=== PATIENT | female | born 1990 | race Hispanic/Latino ===

== ENCOUNTER 2019-01-05 03:32 | Observation (INO) | payer BC, SELFPAY ==
[2019-01-05] MEDS ORDERED: NA CHLORIDE 0.9% 1,000 ML ONE ×2 (03:57→04:09)
[2019-01-05] MEDS ORDERED: ONDANSETRON 4 MG/2 ML VIAL ONE (04:05)
[2019-01-05] MEDS ORDERED: ADENOSINE 6 MG/ 2ML VIAL IV ONE ×2 (04:07→04:13)
[2019-01-05] MEDS ORDERED: METOPROLOL TARTRATE 5 MG/5 ML INJ IV ONE (04:34)
[2019-01-05 04:53] LABS: Protime INR 0.92
[2019-01-05 04:58] LABS: Absolute Lymphocytes (CBC) 3.4 K/uL (0.7-4.9); Absolute Monocytes 0.5 K/uL (0.1-1.3); Absolute Neutrophil 4.9 K/uL (1.8-8.0); Basophils % 1.1 % (0-1.3); Eosinophils % 2.3 % (0-4.4); Hematocrit 30.3 % (36.0-45.0); Lymphocytes % 37.5 % (15.3-44.8); MPV 8.2 fL (7.6-11.3); Monocytes % 5.7 % (3.3-12.3); RBC Red Blood Cell Count 4.04 M/uL (3.86-4.86)
--- NOTE | 2019-01-05 04:58 | EDPHYS ---
Physician Documentation [facility] Name: Campos Linares Age: 28 yrs Sex: Female : 1990 Arrival Date: 01/05/2019 Time: 03:33 Bed 4 Private MD: Jonatan Encarnacion V ED Physician Alejandro Deutsch HPI: 01/05 03:59 This 28 yrs old Female presents to ER via Wheelchair with complaints of Chest gertrudis Pain. 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 - Social history:: Smoking status: Patient/guardian denies using tobacco. - Ebola Screening: : Patient negative for fever greater than or equal to 101.5 degrees Fahrenheit, and additional compatible Ebola Virus Disease symptoms. - Family history:: not pertinent. ROS: 03:59 Eyes: Negative for injury, pain, redness, and discharge, ENT: Negative for injury, gertrudis pain, and discharge, Neck: Negative for injury, pain, and swelling, Respiratory: Negative for shortness of breath, cough, wheezing, and pleuritic chest pain, Abdomen/GI: Negative for abdominal pain, nausea, vomiting, diarrhea, and constipation, Back: Negative for injury and pain, : Negative for injury, bleeding, discharge, and swelling, MS/Extremity: Negative for injury and deformity, Neuro: Negative for headache, weakness, numbness, tingling, and seizure, Psych: Negative for depression, anxiety, suicide ideation, homicidal ideation, and hallucinations, Allergy/Immunology: Negative for hives, rash, and allergies, Endocrine: Negative for neck swelling, polydipsia, polyuria, polyphagia, and marked weight changes, Hematologic/Lymphatic: Negative for swollen nodes, abnormal bleeding, and unusual bruising. 03:59 Constitutional: Positive for malaise. 03:59 Cardiovascular: Positive for chest pain, palpitations. Exam: 03:59 Constitutional: This is a well developed, well nourished patient who is awake, alert, gertrudis and in no acute distress. Head/Face: Normocephalic, atraumatic. Eyes: Pupils equal round and reactive to light, extra-ocular motions intact. Lids and lashes normal. Conjunctiva and sclera are non-icteric and not injected. Cornea within normal limits. Periorbital areas with no swelling, redness, or edema. ENT: Nares patent. No nasal discharge, no septal abnormalities noted. Tympanic membranes are normal and external auditory canals are clear. Oropharynx with no redness, swelling, or masses, exudates, or evidence of obstruction, uvula midline. Mucous membranes moist. Neck: Trachea midline, no thyromegaly or masses palpated, and no cervical lymphadenopathy. Supple, full range of motion without nuchal rigidity, or vertebral point tenderness. No Meningismus. Chest/axilla: Normal chest wall appearance and motion. Nontender with no deformity. No lesions are appreciated. Respiratory: Lungs have equal breath sounds bilaterally, clear to auscultation and percussion. No rales, rhonchi or wheezes noted. No increased work of breathing, no retractions or nasal flaring. Abdomen/GI: Soft, non-tender, with normal bowel sounds. No distension or tympany. No guarding or rebound. No evidence of tenderness throughout. Back: No spinal tenderness. No costovertebral tenderness. Full range of motion. Female : Normal external genitalia. MS/ Extremity: Pulses equal, no cyanosis. Neurovascular intact. Full, normal range of motion. Neuro: Awake and alert, GCS 15, oriented to person, place, time, and situation. Cranial nerves II-XII grossly intact. Motor strength 5/5 in all extremities. Sensory grossly intact. Cerebellar exam normal. Normal gait. Psych: Awake, alert, with orientation to person, place and time. Behavior, mood, and affect are within normal limits. 03:59 Cardiovascular: Rate: tachycardic, Rhythm: regular, Pulses: Pulses are 3+ in bilateral radial, brachial, femoral, popliteal, posterior tibial and and dorsalis pedis arteries.. Heart sounds: normal, Edema: is not appreciated, JVD: is not appreciated. 03:59 Musculoskeletal/extremity: DVT Exam: No signs of deep vein thrombosis. no pain, no gertrudis swelling, no tenderness, negative Homans' sign noted on exam, no appreciated bluish discoloration, no erythema, no increased warmth. Vital Signs: 03:41 BP 70 / 28; Pulse 175; Resp 30 S; Pulse Ox 100% on R/A; Weight 73.94 kg (R); Height 5 jd3 ft. 4 in. (162.56 cm) (R); Pain 10/10; 04:00 BP 96 / 28; Pulse 187; Resp 25 S; Pulse Ox 100% on 2 lpm NC; jd3 04:05 BP 74 / 47; Pulse 183; Resp 15 S; Pulse Ox 100% on 2 lpm NC; jd3 04:09 BP 82 / 51; Pulse 173; Resp 15 S; Pulse Ox 100% on 2 lpm NC; jd3 04:13 BP 85 / 61; Pulse 169; Resp 22 S; Pulse Ox 100% on 2 lpm NC; jd3 04:18 BP 77 / 62; Pulse 166; Resp 19 S; Pulse Ox 100% on 2 lpm NC; jd3 04:20 BP 106 / 70; Pulse 98; Resp 22 S; Pulse Ox 97% on 2 lpm NC; jd3 04:23 BP 104 / 69; Pulse 77; Resp 18 S; Pulse Ox 100% on 2 lpm NC; jd3 04:28 BP 101 / 69; Pulse 85; Resp 15 S; Pulse Ox 100% on 2 lpm NC; jd3 04:48 BP 104 / 73; Pulse 91; Resp 17; Pulse Ox 100% on 2 lpm NC; Pain 0/10; tl1 05:07 BP 103 / 67; Pulse 93; Resp 17; Pulse Ox 100% on R/A; Pain 0/10; tl1 06:27 BP 116 / 88; Pulse 85; Resp 20; Pulse Ox 100% on R/A; Pain 0/10; tl1 06:29 Temp 98(O); tl1 07:04 BP 112 / 80; Pulse 85; Resp 18; Pulse Ox 100% on R/A; hj 03:41 Body Mass Index 27.98 (73.94 kg, 162.56 cm) j MDM: 03:43 Patient medically screened. [facility] 04:03 Data reviewed: vital signs, nurses notes, lab test result(s), EKG, radiologic studies, [facility] CT scan, plain films. 01/05 03:59 Order name: Basic Metabolic Panel [facility] 01/05 03:59 Order name: CBC with Diff; Complete Time: 06:11 gertrudis 01/05 03:59 Order name: LFT's; Complete Time: 05:26 gertrudis 01/05 03:59 Order name: Magnesium; Complete Time: 05:26 gertrudis 01/05 03:59 Order name: NT PRO-BNP [facility] 01/05 03:59 Order name: PT-INR; Complete Time: 05:26 gertrudis 01/05 03:59 Order name: Troponin (emerg Dept Use Only); Complete Time: 05:26 gertrudis 01/05 03:59 Order name: TSH; Complete Time: 05:26 gertrudis 01/05 03:59 Order name: Basic Metabolic Panel; Complete Time: 05:26 EDMS 01/05 03:59 Order name: NT PRO-BNP; Complete Time: 05:26 EDMS 01/05 05:05 Order name: CBC Smear Scan; Complete Time: 06:11 EDMS 01/05 05:08 Order name: Lipid Profile [facility] 01/05 05:08 Order name: Lipid Profile ED[facility] 01/05 05:08 Order name: Troponin I [facility] 01/05 03:59 Order name: XRAY Chest (1 view) [facility] 01/05 03:59 Order name: EKG; Complete Time: 04:00 gertrudis 01/05 03:59 Order name: Cardiac monitoring; Complete Time: 04:32 gertrudis 01/05 03:59 Order name: CT Chest For PE Angio [facility] 01/05 05:08 Order name: Heart Healthy [facility] 01/05 05:08 Order name: EKG Electrocardiogram [facility] 01/05 05:08 Order name: EKG Electrocardiogram ED[facility] 01/05 05:08 Order name: Troponin I ED[facility] 01/05 05:08 Order name: Troponin I [facility] 01/05 03:59 Order name: EKG - Nurse/Tech; Complete Time: 04:32 gertrudis 01/05 03:59 Order name: IV Saline Lock; Complete Time: 04:32 gertrudis 01/05 03:59 Order name: Labs collected and sent; Complete Time: 04:32 gertrudis 01/05 03:59 Order name: O2 Per Protocol; Complete Time: 04:32 gertrudis 01/05 03:59 Order name: O2 Sat Monitoring; Complete Time: 04:32 gertrudis Administered Medications: 03:54 Drug: NS 0.9% 1000 ml {Note: given by Ksenia BURROWS.} Route: IV; Rate: 1 bolus; Site: jd3 right hand; 05:07 Follow up: IV Status: Completed infusion tl1 03:54 Drug: Zofran 4 mg {Note: given by Ksenia BURROWS.} Route: IVP; Site: right hand; jd3 04:45 Follow up: Response: No adverse reaction; Marked relief of symptoms; Nausea is decreasedtl1 04:12 Drug: NS 0.9% 1000 ml Route: IV; Rate: 1 bolus; Site: left antecubital; jd3 05:06 Follow up: IV Status: Completed infusion tl1 04:19 Drug: Adenosine 6 mg {Note: given by Sahara VALDOVINOS} Route: IVP; Site: left antecubital; jd3 04:47 Follow up: Response: No adverse reaction; Marked relief of symptoms; Cardiac rhythm tl1 changed 04:24 Drug: Lopressor 2.5 mg Route: IVP; Site: right hand; jd3 04:47 Follow up: Response: No adverse reaction; No change in condition tl1 04:45 Drug: Lopressor 2.5 mg Route: IVP; Infused Over: 5 mins; Site: right hand; tl1 05:06 Follow up: Response: No adverse reaction; Marked relief of symptoms tl1 05:06 Drug: Lopressor 25 mg Route: PO; tl1 05:17 Follow up: Response: No adverse reaction; No change in condition tl1 Disposition: 01/05/19 04:57 Hospitalization ordered by Judith Pennington for Observation. Preliminary diagnosis are Chest pain, unspecified - sp breast augmentation, Supraventricular tachycardia - hx of atrial fibrillation, Anemia, unspecified. - Bed requested for Telemetry/MedSurg (observation). - Status is Observation. hj - Condition is Stable. - Problem is new. - Symptoms have improved. UTI on Admission? No Signatures: Dispatcher [employer] EDMS Farnaz Cordova RN Alejandro Rocha MD MD cha Lasagna, Tonya RN RN tl1 Adriel Shepherd RN RN hj Davies, Jonathon, RN RN jd3 Corrections: (The following items were deleted from the chart) 04:58 04:57 Hospitalization Ordered by Judith Pennington MD for Observation. Preliminary gertrudis diagnosis is Chest pain, unspecified; Supraventricular tachycardia. Bed requested for Telemetry/MedSurg (observation). Status is Observation. Condition is Stable. Problem is new. Symptoms have improved. UTI on Admission? No. gertrudis 05:11 04:58 01/05/2019 04:57 Hospitalization Ordered by Judith Pennington MD for Observation. mw Preliminary diagnosis is Chest pain, unspecified - sp breast augmentation; Supraventricular tachycardia - hx of atrial fibrillation. Bed requested for Telemetry/MedSurg (observation). Status is Observation. Condition is Stable. Problem is new. Symptoms have improved. UTI on Admission? No. gertrudis 05:27 05:11 01/05/2019 04:57 Hospitalization Ordered by Judith Pennington MD for Observation. gertrudis Preliminary diagnosis is Chest pain, unspecified - sp breast augmentation; Supraventricular tachycardia - hx of atrial fibrillation. Bed requested for Telemetry/MedSurg (observation). Status is Observation. Condition is Stable. Problem is new. Symptoms have improved. UTI on Admission? No. mw 08:09 05:27 01/05/2019 04:57 Hospitalization Ordered by Judith Pennington MD for Observation. hj Preliminary diagnosis is Chest pain, unspecified - sp breast augmentation; Supraventricular tachycardia - hx of atrial fibrillation; Anemia, unspecified. Bed requested for Telemetry/MedSurg (observation). Status is Observation. Condition is Stable. Problem is new. Symptoms have improved. UTI on Admission? No. gertrudis
--- NOTE | 2019-01-05 04:58 | ER ---
Nurse's Notes [facility] Name: Campos Linares Age: 28 yrs Sex: Female : 1990 Arrival Date: 01/05/2019 Time: 03:33 Bed 4 Private MD: Jonatan Encarnacion V Diagnosis: Chest pain, unspecified-sp breast augmentation;Supraventricular tachycardia-hx of atrial fibrillation;Anemia, unspecified Presentation: 01/05 03:48 Presenting complaint: states: "she woke me up saying she had really bad chest jd3 pain and shortness of breath. she recently had a breast surgery on and she hasn't had this happen before.". Transition of care: patient was not received from another setting of care. Onset of symptoms was January 05, 2019. Risk Assessment: Do you want to hurt yourself or someone else? Patient reports no desire to harm self or others. Initial Sepsis Screen: Does the patient meet any 2 criteria? No. Patient's initial sepsis screen is negative. Does the patient have a suspected source of infection? No. Patient's initial sepsis screen is negative. Care prior to arrival: None. 03:48 Method Of Arrival: Wheelchair jd3 03:48 Acuity: ADIEL 1 jd3 Triage Assessment: 03:48 Cardiovascular: Reports chest pain, pale, clammy skin . Rhythm is SVT Chest pain is jd3 described as severe, quality is sharp. 03:48 General: Appears distressed, Behavior is cooperative, appropriate for age, anxious. tl1 Pain: Complains of pain in chest Pain currently is 10 out of 10 on a pain scale. Quality of pain is described as crushing, Pain began suddenly, Is continuous. EENT: No signs and/or symptoms were reported regarding the EENT system. Neuro: Level of Consciousness is awake, alert, obeys commands, Oriented to person, place, time, situation, Reports dizziness. Cardiovascular:. Respiratory: Airway is patent Trachea midline Respiratory effort is even, unlabored, Breath sounds are clear bilaterally. GI: Abdomen is non-distended, Bowel sounds present X 4 quads. Abd is soft and non tender X 4 quads. Reports nausea. : No signs and/or symptoms were reported regarding the genitourinary system. Derm: Skin is clammy, Skin is pale, Skin temperature is cool Wound noted right nipple, right breast and left breast Wound is surgical wound post op breast augmentation. 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 - Social history:: Smoking status: Patient/guardian denies using tobacco. - Ebola Screening: : Patient negative for fever greater than or equal to 101.5 degrees Fahrenheit, and additional compatible Ebola Virus Disease symptoms. - Family history:: not pertinent. Screenin:55 Abuse screen: Denies threats or abuse. Denies injuries from another. Nutritional tl1 screening: No deficits noted. Tuberculosis screening: No symptoms or risk factors identified. Fall Risk IV access (20 points). Assessment: 04:26 Reassessment: x-ray at bedside. jd3 05:13 Reassessment: Patient and/or family updated on plan of care and expected duration. Pain tl1 level reassessed. Patient is alert, oriented x 3, equal unlabored respirations, skin warm/dry/pink. Patient states feeling better. Patient states symptoms have improved. General: Appears in no apparent distress. Pain: Denies pain. Pain does not radiate. Pain: Pain currently is 0 out of 10 on a pain scale. Neuro: Level of Consciousness is awake, alert, Oriented to person, place, time, situation. Cardiovascular: Denies chest pain, Capillary refill < 3 seconds Patient's skin is warm and dry. Rhythm is regular. Respiratory: Airway is patent Trachea midline Respiratory effort is even, unlabored, Breath sounds are clear bilaterally. GI: Abdomen is non-distended, Bowel sounds present X 4 quads. Abd is soft and non tender X 4 quads. : No signs and/or symptoms were reported regarding the genitourinary system. Derm: Skin is pink, warm \\T\\ dry. Skin temperature is warm Wound noted left breast and right breast Wound is surgical wounds s/p breast augmentation. 07:03 General: Appears in no apparent distress. uncomfortable, Behavior is calm, cooperative, hj appropriate for age. Pain: Complains of pain in chest. Neuro: Level of Consciousness is awake, alert, obeys commands, Oriented to person, place, time, situation, Appropriate for age. Cardiovascular: Capillary refill < 3 seconds Patient's skin is warm and dry. Respiratory: Airway is patent Trachea midline Respiratory effort is even, unlabored, Respiratory pattern is regular, symmetrical. GI: Abdomen is non-distended, Bowel sounds present X 4 quads. Abd is soft and non tender. : No signs and/or symptoms were reported regarding the genitourinary system. EENT: No signs and/or symptoms were reported regarding the EENT system. Derm: No signs and/or symptoms reported regarding the dermatologic system. Musculoskeletal: No signs and/or symptoms reported regarding the musculoskeletal system. 07:55 Reassessment: 2nd set of trop sent. Vital Signs: 03:41 BP 70 / 28; Pulse 175; Resp 30 S; Pulse Ox 100% on R/A; Weight 73.94 kg (R); Height 5 jd3 ft. 4 in. (162.56 cm) (R); Pain 10/10; 04:00 BP 96 / 28; Pulse 187; Resp 25 S; Pulse Ox 100% on 2 lpm NC; jd3 04:05 BP 74 / 47; Pulse 183; Resp 15 S; Pulse Ox 100% on 2 lpm NC; jd3 04:09 BP 82 / 51; Pulse 173; Resp 15 S; Pulse Ox 100% on 2 lpm NC; jd3 04:13 BP 85 / 61; Pulse 169; Resp 22 S; Pulse Ox 100% on 2 lpm NC; jd3 04:18 BP 77 / 62; Pulse 166; Resp 19 S; Pulse Ox 100% on 2 lpm NC; jd3 04:20 BP 106 / 70; Pulse 98; Resp 22 S; Pulse Ox 97% on 2 lpm NC; jd3 04:23 BP 104 / 69; Pulse 77; Resp 18 S; Pulse Ox 100% on 2 lpm NC; jd3 04:28 BP 101 / 69; Pulse 85; Resp 15 S; Pulse Ox 100% on 2 lpm NC; jd3 04:48 BP 104 / 73; Pulse 91; Resp 17; Pulse Ox 100% on 2 lpm NC; Pain 0/10; tl1 05:07 BP 103 / 67; Pulse 93; Resp 17; Pulse Ox 100% on R/A; Pain 0/10; tl1 06:27 BP 116 / 88; Pulse 85; Resp 20; Pulse Ox 100% on R/A; Pain 0/10; tl1 06:29 Temp 98(O); tl1 07:04 BP 112 / 80; Pulse 85; Resp 18; Pulse Ox 100% on R/A; hj 03:41 Body Mass Index 27.98 (73.94 kg, 162.56 cm) jd3 ED Course: 03:33 Patient arrived in ED. am2 03:33 Jonatan Encarnacion MD is Private Physician. am2 03:43 Alejandro Deutsch MD is Attending Physician. gertrudis 03:50 Triage completed. jd3 03:50 Inserted saline lock: 20 gauge in left antecubital area, using aseptic technique. jd3 03:53 Inserted saline lock: 20 gauge in right hand, using aseptic technique. Blood collected. jd3 03:53 Oxygen administration via nasal cannula \\T\\ 2L/min. jd3 03:56 Arm band placed on. jd3 03:56 Patient has correct armband on for positive identification. Placed in gown. Bed in low tl1 position. Call light in reach. Side rails up X2. ekg monitor tech on. Pulse ox on. NIBP on. Warm blanket given. 04:30 X-ray completed. Portable x-ray completed in exam room. Patient tolerated procedure kw well. 04:31 XRAY Chest (1 view) In Process Unspecified. EDMS 04:44 Sahara Osborn, MARKOS is Primary Nurse. tl1 04:46 Radiology exam delayed due to lab results not completed at this time. kw1 04:54 Assisted to bedside commode. tl1 04:56 Judith Pennington MD is Hospitalizing Provider. gertrudis 05:16 No provider procedures requiring assistance completed. Patient admitted, IV remains in tl1 place. 05:17 Patient maintains SpO2 saturation greater than 95% on room air. tl1 06:[address] via wheelchair. kw1 06:37 CT completed. Patient tolerated procedure well. Patient moved back from CT. kw1 Administered Medications: 03:54 Drug: NS 0.9% 1000 ml {Note: given by Ksenia BURROWS.} Route: IV; Rate: 1 bolus; Site: jd3 right hand; 05:07 Follow up: IV Status: Completed infusion tl1 03:54 Drug: Zofran 4 mg {Note: given by Ksenia VALDOVINOS} Route: IVP; Site: right hand; jd3 04:45 Follow up: Response: No adverse reaction; Marked relief of symptoms; Nausea is decreasedtl1 04:12 Drug: NS 0.9% 1000 ml Route: IV; Rate: 1 bolus; Site: left antecubital; jd3 05:06 Follow up: IV Status: Completed infusion tl1 04:19 Drug: Adenosine 6 mg {Note: given by Sahara VALDOVINOS} Route: IVP; Site: left antecubital; jd3 04:47 Follow up: Response: No adverse reaction; Marked relief of symptoms; Cardiac rhythm tl1 changed 04:24 Drug: Lopressor 2.5 mg Route: IVP; Site: right hand; jd3 04:47 Follow up: Response: No adverse reaction; No change in condition tl1 04:45 Drug: Lopressor 2.5 mg Route: IVP; Infused Over: 5 mins; Site: right hand; tl1 05:06 Follow up: Response: No adverse reaction; Marked relief of symptoms tl1 05:06 Drug: Lopressor 25 mg Route: PO; tl1 05:17 Follow up: Response: No adverse reaction; No change in condition tl1 Outcome: 04:57 Decision to Hospitalize by Provider. gertrudis 08:00 Admitted to Med/surg accompanied by tech, family with patient, via stretcher, room 210, Report called to TJ 08:00 Condition: stable 08:00 Instructed on the need for admit, Demonstrated understanding of instructions. 08:09 Patient left the ED. tabatha Signatures: Dispatcher [employer] EDMS Alejandro Deutsch MD MD cha Whitley, Kimberlee kw Lasagna, Tonya RN RN tl1 Adriel Shepherd RN RN hj Moreno, Amanda am2 Davies, Jonathon, RN RN jd3 Wilhelm, Kimberly kw1 Corrections: (The following items were deleted from the chart) 04:29 03:48 Acuity: ADIEL 2 jd3 jd3 04:49 03:48 Presenting complaint: states: "she woke me up after saying she had really jd3 bad chest pain and shortness of breath. she recently had a breast surgery and she hasn't had this happen before." jd3
[2019-01-05] MEDS ORDERED: ALPRAZOLAM 0.25 MG TABLET PO PRN (05:04)
[2019-01-05] MEDS ORDERED: MORPHINE 2 MG/ML SYR IV PRN (05:04)
[2019-01-05] MEDS ORDERED: ACETAMINOPHEN 500 MG TAB PO PRN (05:04)
[2019-01-05 05:14] LABS: ALT/SGPT 20 U/L (12-78); AST/SGOT 19 U/L (15-37); Albumin 2.8 g/dL (3.4-5.0); Alkaline Phosphatase 58 U/L (45-117); BUN Blood Urea Nitrogen 14 mg/dL (7-18); Bicarbonate 23 mmol/L (21-32); Bilirubin Direct 0.2 mg/dL (0-0.2); Bilirubin Total 0.7 mg/dL (0.2-1.0); Glucose Level 164 mg/dL (74-106); NT PRO-BNP 36 pg/mL (<125); Potassium 3.7 mmol/L (3.5-5.1); Protein, Total 6.5 g/dL (6.4-8.2); Sodium Level 140 mmol/L (136-145); Troponin (Emerg Dept Use Only) < 0.02 ng/mL (0.0-0.045)
[2019-01-05] MEDS ORDERED: METOPROLOL TAR 25 MG TAB ONE (05:15)
[2019-01-05 05:40] LABS: Anisocytosis 1+; Blood Morphology Comment NOTED (NOT SEEN); Platelet Estimate ADEQ; Urine White Blood Cell Casts OK
--- NOTE | 2019-01-05 07:58 | RAD REPORT ---
EXAM DESCRIPTION: [facility] Single View01/05/2019 4:32 am CLINICAL HISTORY: Chest pain COMPARISON: 2008 FINDINGS: The lungs appear clear of acute infiltrate. The heart is normal size IMPRESSION: No acute abnormalities displayed
[2019-01-05 08:18] LABS: Troponin I 0.03 ng/mL (0.0-0.045)
--- NOTE | 2019-01-05 08:29 | P.HP ---
Certification for Inpatient Patient admitted to: Observation With expected LOS: <2 Midnights Patient will require the following post-hospital care: None Practitioner: I am a practitioner with admitting privileges, knowledge of patient current condition, hospital course, and medical plan of care. Services: Services provided to patient in accordance with Admission requirements found in Title 42 Section 412.3 of the Code of Federal Regulations Patient History Date of Service: 01/05/19 Reason for admission: Atrial fibrillation with RVR History of Present Illness: Patient is a 28-year-old female came into the hospital with AFib with RVR. Patient has a history of atrial fibrillation with rapid ventricular response. Patient had been placed on a beta-nydia. However, she was unable to continue taking this. She was having too many ill affects. She stopped a few years ago. She had been doing well up until dinner last night. She suddenly had a bout of palpitations. She was a little short of breath. She came into the hospital as she continued to feel worse. She was found to be in AFib with RVR. She was given beta-blockers. Allergies No Known Allergies Allergy (Unverified 01/05/19 07:04) - Past Medical/Surgical History -: SVT Past Surgical History: Patient denies surgical history - Family History Father Family History: Reviewed- Non-Contributory - Social History Smoking Status: Former smoker Alcohol use: No CD- Drugs: No Review of Systems 10-point ROS is otherwise unremarkable Physical Examination - Vital Signs Temperature: 98 F Blood Pressure: 70/28 Pulse: 175 Respirations: 30 Pulse Ox (%): 95 - Physical Exam General: Alert, In no apparent distress, Oriented x3 HEENT: Atraumatic, Normocephalic, PERRLA, Mucous membr. moist/pink Neck: Supple, 2+ carotid pulse no bruit, JVD not distended, No Thyromegaly Respiratory: Clear to auscultation bilaterally, Normal air movement Cardiovascular: Regular rate/rhythm, Normal S1 S2, No murmurs Capillary refill: <2 Seconds Gastrointestinal: Normal bowel sounds, Soft and benign, Non-distended, No tenderness Musculoskeletal: No clubbing, No swelling Neurological: Normal gait, Normal speech, Normal strength at 5/5 x4 extr, Normal tone, Sensation intact, Cranial nerves 3-12 intact - Studies Laboratory Data (last 24 hrs) 01/05/19 03:50: PT 10.9, INR 0.92 01/05/19 03:50: WBC 9.2, Hgb 9.7 L, Hct 30.3 L, Plt Count 376 01/05/19 03:50: Sodium 140, Potassium 3.7, BUN 14, Creatinine 0.73, Glucose 164 H, Magnesium 2.0, Total Bilirubin 0.7, AST 19, ALT 20, Alkaline Phosphatase 58 Assessment & Plan - Problems (Diagnosis) (1) SVT (supraventricular tachycardia) Current Visit: Yes Status: Acute (2) Atrial fibrillation Current Visit: Yes Status: Acute - Plan PLAN: 1. Low-dose beta-nydia 2. Cardiology consultation 3. ECHO 4. Anticipate discharge home later today if okay with Cardiology and PCP. Will patient to Dr. Encarnacion later today Discharge Plan: Home Plan to discharge in: Greater than 2 days - Advance Directives Does patient have a Living Will: No Does patient have a Durable POA for Healthcare: No - Code Status/Comfort Care Code Status Assessed: Yes Code Status: Full Code Critical Care: No Time Spent Managing PTS Care (In Minutes): 45
[2019-01-05] MEDS ORDERED: ENOXAPARIN 80 MG/0.8 ML SQ ONE (08:43)
[2019-01-05] MEDS ORDERED: ENOXAPARIN 40 MG/0.4 ML SQ SCH (09:00)
[2019-01-05] MEDS ORDERED: METOPROLOL TAR 25 MG TAB PO SCH (09:00)
[2019-01-05] MEDS ORDERED: ASPIRIN EC 81 MG TAB PO SCH (09:00)
--- NOTE | 2019-01-05 09:07 | EKG ---
Test Date: 2019-01-05 Test Time: 04:21:00 Psychiatric Aide Instructor: ECHO MEASUREMENT RESULTS: Intervals: Rate: 77 DE: QRSD: 78 QT: 390 QTc: 441 [place]: P: DE: QRS: 44 T: 42 INTERPRETIVE STATEMENTS: Sinus rhythm normal ECG Compared to ECG 01/05/2019 04:02:41 Supraventricular tachycardia no longer present Electronically Signed On 01-05-19 09:07:23 TOOL CHASER by Lamont Bennett
--- NOTE | 2019-01-05 09:08 | EKG ---
Test Date: 2019-01-05 Test Time: 04:02:41 Soil Field Technician: ECHO MEASUREMENT RESULTS: Intervals: Rate: 182 [place]: QRSD: 78 QT: 250 QTc: 435 [place]: P: TX: QRS: 71 T: 251 INTERPRETIVE STATEMENTS: Supraventricular tachycardia ST abnormality, possible subendocardial injury Abnormal ECG Compared to ECG 01/05/2019 03:48:27 Supraventricular tachycardia is now present Electronically Signed On 01-05-19 09:08:06 PROGRAM ENGAGEMENT DIRECTOR by Lamont Bennett
[2019-01-05] MEDS ORDERED: INFLUENZA VACCINE (for 3y+) 0.5 ML DOSE IMVAC ONE (11:00)
[2019-01-05] MEDS ORDERED: LORAZEPAM 0.5 MG TABLET PO PRN (12:08)
[2019-01-05] MEDS ORDERED: CODEINE PO PRN (13:15)
[2019-01-05] MEDS ORDERED: TYLENOL PO PRN (13:15)
--- NOTE | 2019-01-05 13:43 | RAD REPORT ---
EXAM DESCRIPTION: CT - Chest For Pe Angio - 01/05/2019 8:49 am CLINICAL HISTORY: The patient is 28 years old and is Female; CHEST PAIN TECHNIQUE: Axial computed tomographic angiography images of the chest with intravenous contrast [facility] pulmonary embolism protocol. Sagittal and coronal reformatted images were created and reviewed. Sagittal and coronal reformatted images were created and reviewed. This CT exam was performed [facility] one or more of the following dose reduction techniques: automated exposure control, adjustment of the mA and/or kV according to patient size, and/or use of iterative reconstruction technique. MIP reconstructed images were created and reviewed. COMPARISON: No relevant prior studies available. FINDINGS: Pulmonary arteries: There are no obvious filling defects identified within the pulmonary arteries to suggest pulmonary embolism. Aorta: No acute findings. No thoracic aortic aneurysm. Lungs: Minimal bibasilar atelectasis is present. No mass. Pleural space: Unremarkable. No significant effusion. No pneumothorax. Heart: Unremarkable. No cardiomegaly. No significant pericardial effusion. No evidence of RV dysfunction. Bones/joints: No acute fracture. No dislocation. Soft tissues: Bilateral breast implants are present. Subcutaneous air within the chest wall is n oted consistent with patient's history of recent surgery. Lymph nodes: Unremarkable. No enlarged lymph nodes. IMPRESSION: No evidence of pulmonary embolism. Electronically signed by: Janeth Hernandez MD 01/05/2019 6:48 AM FIXING CARPENTER Due to temporary technical issues with the PACS/Fluency reporting system, reports are being signed by the in house radiologist as a courtesy to ensure prompt reporting. The interpreting radiologist is f ully responsible for the content of the report.
[2019-01-05] MEDS ORDERED: NITROGLYCERIN 1 GM PKT TD SCH (14:00)
--- NOTE | 2019-01-05 17:34 | P.SSS ---
Patient History Date of Service: 01/05/19 Reason for admission: PALPITATIONS History of Present Illness: MS. GAGNON HAS HAD SURGERY FOR BREAST AUGMENTATION RECENTLY. SHE IS DOING GREAT. SHE IS USING 3 ABX, CIPRO, CLINDAMYCIN AND KEFLEX BY DR VILLAREAL. SHE IS ALSO ON NITROGLYCERINE TOPICALLY. SHE STARTED TO HAVE PALPITATIONS , TOOK ATIVAN FROM PSYCHIATRIST AND DID NOT GET WELL SO SHE ENDS UP IN ER. ON EKG SHE HAS SVT PER DR. GOEL. SHE IS STABLE TO GO HOME PER HIM. SHE IS ON TOPROL XL NOW SMALL DOSE. SHE HAD THIS 9 YEARS AGO AND SHE TOOK TOPROL XL FROM DR. KOLB BUT STOPPED SHE FELT WELL. SHE IS STABLE FOR ME. Allergies egg Allergy (Verified 01/05/19 10:26) Itching milk Allergy (Verified 01/05/19 10:26) Itching Home Medications: Cephalexin 500 mg PO Q6H 01/05/19 Ciprofloxacin/Ciprofloxa HCl [Ciprofloxacin 500 mg ER Tablet] 500 mg PO BID 02/20 Clindamycin HCl 300 mg PO Q8H 01/05/19 Codeine/APAP [Tylenol W/Codeine #3 tab] 1 tab PO Q4HP PRN 01/05/19 LORazepam [Ativan] 0.5 mg PO BID PRN 01/05/19 Metoprolol Succinate 25 mg PO DAILY #90 tab.er.24h 01/05/19 Mupirocin Oint [Bactroban 2% Ointment] 22 gm TP TID 01/05/19 Nitroglycerin Oint [Nitrol Oint] 1 gm TD TID 01/05/19 PARoxetine HCl [Paroxetine HCl] 40 mg PO BID 01/05/19 - Past Medical/Surgical History Has patient received pneumonia vaccine in the past: No -: SVT -: AFIB 2008 -: HTN -: Anxiety attacks -: Gastric Sleave Surgery 2016 -: Breast Augmentation both breast -: Chloemy Luis 2017 -: Liposuction 2018 - Social History Smoking Status: Former smoker Alcohol use: No CD- Drugs: No Caffeine use: Yes Place of Residence: Home Review of Systems 10-point ROS is otherwise unremarkable Physical Examination - Vital Signs Temperature: 99.2 F Blood Pressure: 108/62 Pulse: 94 Respirations: 13 Pulse Ox (%): 96 - Physical Exam General: Alert, In no apparent distress HEENT: Atraumatic, PERRLA, Mucous membr. moist/pink, EOMI, Sclerae nonicteric Neck: Supple, 2+ carotid pulse no bruit, No LAD, Without JVD or thyroid abnormality Respiratory: Clear to auscultation bilaterally, Normal air movement Cardiovascular: Regular rate/rhythm, Normal S1 S2 Gastrointestinal: Normal bowel sounds, No tenderness Musculoskeletal: No tenderness Integumentary: No rashes Neurological: Normal gait, Normal speech, Normal strength at 5/5 x4 extr, Normal tone, Normal affect Lymphatics: No axilla or inguinal lymphadenopathy - Studies Laboratory Data (last 24 hrs) 01/05/19 03:50: PT 10.9, INR 0.92 01/05/19 03:50: WBC 9.2, Hgb 9.7 L, Hct 30.3 L, Plt Count 376 01/05/19 03:50: Sodium 140, Potassium 3.7, BUN 14, Creatinine 0.73, Glucose 164 H, Magnesium 2.0, Total Bilirubin 0.7, AST 19, ALT 20, Alkaline Phosphatase 58 - Diagnosis (Problem(s)) (1) SVT (supraventricular tachycardia) Current Visit: Yes Status: Acute Plan: ABOVE. DR. GOEL WILL FU STABLE FOR DC. TOPROL XL GIVEN. I ALSO TOLD HER THAT HAVING TO USE NITROGLYCERINE CAN TRIGGER SVT AT TIMES. SHE WILL TALK TO HER SURGEON. - Disposition Disposition: ROUTINE DISCHARGE Condition: FAIR
--- NOTE | 2019-01-05 17:59 | CON ---
Chief Complaint: Heart racing. History Of Present Illness: Mrs. Linares has had 2 episodes of SVT, one when she was 8 months about 5 years ago and another one was today. 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 She received adenosine and is in sinus rhythm now and feels back to normal. The patient has panic attacks. Some of those might be SVT. Those are about once a week now, but usu ally they are relieved by lorazepam. We think she probably just had 2 spells of SVT. She does not h ave a history of other heart disease. No history of myocardial infarction or stroke. She is very an emic with iron-deficiency anemia. She is still menstruating, taking iron supplements. She is gravid a 4, para 2 with 2 spontaneous miscarriages. She does not have diabetes, hypertension, or dyslipidem ia. Uses no tobacco. Rare alcohol. No illegal drugs. Physical Examination: Vital Signs: Five feet and 4 inches, 166 pounds. HEENT: Normal. Lungs: Clear. Cardiac: Normal. Abdomen: Soft. Extremities: Normal. No cyanosis, clubbing, or edema. Diagnostic Studies: Her EKG shows SVT with diffuse ST abnormality, and when she is in sinus rhythm, her EKG is within normal limits. I believe the patient could be discharged home with a [id number]-pocket strategy, 50 mg of metoprolo l to use only she has a spell. If that results in a lot of uncomfortable spells, she could undergo a n AV node modification or ablation under the care of Dr. Pradhan, and I will help her arrange an appointmen t to see Dr. Pradhan if she wishes. GAEL/EMERALD Voice ID: [id number] Report ID: [id number]
[2019-01-05] MEDS ORDERED: HOME MED 1 EA UNK (Paroxetine Hcl [Paroxetine Hcl] 40 MG) PO SCH (21:00)
== END 2019-01-05 18:26 | disposition home or self-care (01) ==
LOC: ER 03:32 → ERHOLD 05:16 → 2ND 08:02
PROVIDERS: ADMIT Internal Medicine; ATTEND Hospitalist
DX: I47.1 Supraventricular tachycardia (principal); I10 Essential (primary) hypertension; Z98.84 Bariatric surgery status; Z87.891 Personal history of nicotine dependence; Z91.011 Allergy to milk products; Z91.012 Allergy to eggs
CPT/HCPCS: 36415; 71045; 71275; 80048; 80061; 80076; 83735; 83880; 84443; 84484; 85025; 85610; 93005; 99291; G0378; J0153; J1650; J2405; J7030; Q9967

== ENCOUNTER 2020-10-25 01:51 | Emergency (ER) | payer SELFPAY ==
--- OUTSIDE RECORDS SUMMARY | 2020-10-25 01:54 | XMS REPORT | Continuity of Care Document ---
:1990 Author Organization [facility] t Address [address] [place] [address] Dr. Goldman [address] [place] [id number] Care Team Providers Name Role Phone Unavailable Unavailable Unavailable Problems This patient has no known problems. Allergies, Adverse Reactions, Alerts This patient has no known allergies or adverse reactions. Medications This patient has no known medications. Procedures This patient has no known procedures. Results This patient has no known results.
[2020-10-25 03:25] LABS: Absolute Lymphocytes (CBC) 1.9 K/uL (0.7-4.9); Basophils % 0.8 % (0-1.3); Lymphocytes % 23.7 % (15.3-44.8); MPV 8.1 fL (7.6-11.3); Protime INR 0.84; RBC Red Blood Cell Count 4.43 M/uL (3.86-4.86)
[2020-10-25 03:39] LABS: ALT/SGPT 21 U/L (12-78); AST/SGOT 15 U/L (15-37); Albumin 3.4 g/dL (3.4-5.0); Alkaline Phosphatase 73 U/L (45-117); BUN Blood Urea Nitrogen 14 mg/dL (7-18); Bicarbonate 28 mmol/L (21-32); Bilirubin Direct < 0.1 mg/dL (0-0.2); Bilirubin Total 0.3 mg/dL (0.2-1.0); Glucose Level 97 mg/dL (74-106); Lipase 135 U/L (73-393); Magnesium 2.4 mg/dL (1.8-2.4); NT PRO-BNP 19 pg/mL (<125); Potassium 3.8 mmol/L (3.5-5.1); Protein, Total 7.1 g/dL (6.4-8.2); Sodium Level 140 mmol/L (136-145); Troponin (Emerg Dept Use Only) < 0.02 ng/mL (0.0-0.045)
[2020-10-25] MEDS ORDERED: MAGNES/ALUMIN/SIMET 30ML UCUP ONE (04:00)
[2020-10-25] MEDS ORDERED: MORPHINE 4 MG/ML SYR ONE (04:01)
[2020-10-25] MEDS ORDERED: ONDANSETRON 4 MG/2 ML VIAL ONE (04:01)
[2020-10-25] MEDS ORDERED: LIDOCAINE VISCOUS 2% SOLN 15 ML UDC ONE (04:01)
[2020-10-25] MEDS ORDERED: NA CHLORIDE 0.9% 1,000 ML ONE (04:01)
[2020-10-25] MEDS ORDERED: FAMOTIDINE 20 MG/2 ML VIAL IV ONE (04:01)
--- NOTE | 2020-10-25 04:46 | EDPHYS ---
Physician Documentation [facility] Name: Campos Linares Age: 30 yrs Sex: Female : 1990 Arrival Date: 10/25/2020 Time: 01:55 Bed 3 Private MD: ED Physician Judith Jauregui HPI: 10/25 03:27 This 30 yrs old Female presents to ER via Ambulatory with complaints of ma2 Abdominal Pain, Heart Problem. 03:27 The patient presents with abdominal pain. Onset: The symptoms/episode began/occurred ma2 gradually, 1 day(s) ago. Associated signs and symptoms: Pertinent negatives: anorexia, blood in stools, diarrhea, headache, hematuria, vomiting, vomiting blood. The symptoms are described as burning. Severity of pain: At its worst the pain was moderate in the emergency department the pain is unchanged. The patient has experienced similar episodes in the past. 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 - Social history:: Patient/guardian denies using alcohol, street drugs, The patient lives with family, Smoking status: Patient denies any tobacco usage or history of. - Family history:: not pertinent. ROS: 03:27 Constitutional: Negative for fever, chills, and weight loss. ma2 03:27 All other systems are negative. Exam: 03:27 Constitutional: This is a well developed, well nourished patient who is awake, alert, ma2 and in no acute distress. Head/Face: Normocephalic, atraumatic. Eyes: Pupils equal round and reactive to light, extra-ocular motions intact. Lids and lashes normal. Conjunctiva and sclera are non-icteric and not injected. Cornea within normal limits. Periorbital areas with no swelling, redness, or edema. ENT: Nares patent. No nasal discharge, no septal abnormalities noted. Tympanic membranes are normal and external auditory canals are clear. Oropharynx with no redness, swelling, or masses, exudates, or evidence of obstruction, uvula midline. Mucous membranes moist. Neck: Trachea midline, no thyromegaly or masses palpated, and no cervical lymphadenopathy. Supple, full range of motion without nuchal rigidity, or vertebral point tenderness. No Meningismus. Chest/axilla: Normal chest wall appearance and motion. Nontender with no deformity. No lesions are appreciated. Cardiovascular: Regular rate and rhythm with a normal S1 and S2. No gallops, murmurs, or rubs. Normal PMI, no JVD. No pulse deficits. Respiratory: Lungs have equal breath sounds bilaterally, clear to auscultation and percussion. No rales, rhonchi or wheezes noted. No increased work of breathing, no retractions or nasal flaring. Abdomen/GI: Soft, non-tender, with normal bowel sounds. No distension or tympany. No guarding or rebound. No evidence of tenderness throughout. Back: No spinal tenderness. No costovertebral tenderness. Full range of motion. Skin: Warm, dry with normal turgor. Normal color with no rashes, no lesions, and no evidence of cellulitis. MS/ Extremity: Pulses equal, no cyanosis. Neurovascular intact. Full, normal range of motion. Neuro: Awake and alert, GCS 15, oriented to person, place, time, and situation. Cranial nerves II-XII grossly intact. Motor strength 5/5 in all extremities. Sensory grossly intact. Cerebellar exam normal. Normal gait. Vital Signs: 02:51 BP 145 / 101; Pulse 63; Resp 24; Temp 98.4; Pulse Ox 100% on R/A; rr5 03:19 BP 129 / 83; Pulse 61; Resp 19; Pulse Ox 99% ; rr5 03:21 Weight 78.93 kg; Height 5 ft. 4 in. (162.56 cm); rr5 04:25 BP 136 / 89; Pulse 61; Resp 17; Pulse Ox 99% ; rr5 03:21 Body Mass Index 29.87 (78.93 kg, 162.56 cm) rr5 MDM: 03:05 Patient medically screened. ma2 03:27 Differential diagnosis: gastritis, gastroesophageal reflux disease, Irritable bowel ma2 syndrome, pancreatitis. 04:45 Data reviewed: vital signs, nurses notes. Counseling: I had a detailed discussion with ma2 the patient and/or guardian regarding: the historical points, exam findings, and any diagnostic results supporting the discharge/admit diagnosis, the presence of at least one elevated blood pressure reading (>120/80) during this emergency department visit, the need for outpatient follow up. Response to treatment: the patient's symptoms have markedly improved after treatment. 10/25 02:54 Order name: Basic Metabolic Panel; Complete Time: 04:18 10/25 02:54 Order name: CBC with Diff; Complete Time: 04:18 10/25 02:54 Order name: LFT's; Complete Time: 04:18 10/25 02:54 Order name: Magnesium; Complete Time: 04:18 10/25 02:54 Order name: NT PRO-BNP; Complete Time: 04:18 10/25 02:54 Order name: PT-INR; Complete Time: 04:18 10/25 02:54 Order name: Troponin (emerg Dept Use Only); Complete Time: 04:18 10/25 02:54 Order name: XRAY Chest (1 view) 10/25 02:55 Order name: Lipase; Complete Time: 04:18 10/25 02:54 Order name: EKG; Complete Time: 02:55 10/25 02:54 Order name: Cardiac monitoring; Complete Time: 03:03 10/25 02:54 Order name: EKG - Nurse/Tech; Complete Time: 03:03 10/25 02:54 Order name: IV Saline Lock; Complete Time: 03:03 10/25 02:54 Order name: Labs collected and sent; Complete Time: 03:03 10/25 02:54 Order name: O2 Per Protocol; Complete Time: 03:03 10/25 02:54 Order name: O2 Sat Monitoring; Complete Time: 03:03 ea Administered Medications: 03:40 Drug: Zofran (Ondansetron) 4 mg Route: IVP; Site: right antecubital; rr5 03:44 Drug: morphine 4 mg {Note: rass 0.} Route: IVP; Site: right antecubital; rr5 03:45 Drug: NS 0.9% 1000 ml Route: IV; Rate: 1 bolus; Site: right antecubital; rr5 03:45 Drug: Pepcid 20 mg Route: IVP; Site: right antecubital; rr5 04:06 Drug: GI Cocktail without - (Maalox Suspension 30 ml, Lidocaine Liquid 2 % 15 rr5 ml) Route: PO; Disposition: 10/25/20 04:46 Discharged to Home. Impression: Upper abdominal pain, unspecified. - Condition is Stable. - Discharge Instructions: Abdominal Pain, Adult. - Prescriptions for Pepcid 20 mg Oral Tablet - take 1 tablet by ORAL route once daily for 10 days; 10 tablet. - Medication Reconciliation Form, Thank You Letter, Antibiotic Education, Prescription Opioid Use form. - Follow up: Private Physician; When: Tomorrow; Reason: If symptoms return. Signatures: Dispatcher [employer] EDElisa Harrell RN RN ea Alzahri, Mohammad, MD MD ma2 Aydin Caballero RN RN rr5 Corrections: (The following items were deleted from the chart) 05:04 04:46 10/25/2020 04:46 Discharged to Home. Impression: Upper abdominal pain, rr5 unspecified. Condition is Stable. Prescriptions for Pepcid 20 mg Oral Tablet - take 1 tablet by ORAL route once daily for 10 days; 10 tablet. and Forms are Medication Reconciliation Form, Thank You Letter, Antibiotic Education, Prescription Opioid Use. Follow up: Private Physician; When: Tomorrow; Reason: If symptoms return. ma2
--- NOTE | 2020-10-25 04:46 | ER ---
Nurse's Notes [facility] Name: Campos Linares Age: 30 yrs Sex: Female : 1990 Arrival Date: 10/25/2020 Time: 01:55 Bed 3 Private MD: Diagnosis: Upper abdominal pain, unspecified Presentation: 10/25 02:51 Chief complaint: Patient states: abdominal, epigastric and chest pain that woke patient rr5 up from sleep. pt states that she took her blood pressure earlier and it was high, states she has unknown cardiac condition that she is supposed to get an ablation for but states that it is not atrial fibrilation. Pt took omeprazole with no relief. Coronavirus screen: Client denies travel out of the [place] in the last 14 days. Ebola Screen: Patient negative for fever greater than or equal to 101.5 degrees Fahrenheit, and additional compatible Ebola Virus Disease symptoms Patient denies exposure to infectious person. Patient denies travel to an Ebola-affected area in the 21 days before illness onset. No symptoms or risks identified at this time. Risk Assessment: Do you want to hurt yourself or someone else? Patient reports no desire to harm self or others. Onset of symptoms was October 25, 2020. 02:51 Method Of Arrival: Ambulatory rr5 02:51 Acuity: ADIEL 2 rr5 03:03 Initial Sepsis Screen: Does the patient meet any 2 criteria? No. Patient's initial ea sepsis screen is negative. Does the patient have a suspected source of infection? No. Patient's initial sepsis screen is negative. Triage Assessment: 02:56 General: Appears uncomfortable, obese, Behavior is cooperative, restless. Pain: rr5 Complains of pain in chest, epigastric area and abdomen diffusely. Neuro: Level of Consciousness is alert, obeys commands. Cardiovascular: Reports chest pain. Respiratory: Airway is patent Respiratory effort is even, unlabored, relaxed, Respiratory pattern is regular, symmetrical. GI: Reports upper abdominal pain. Derm: Skin is pink, warm \T\ dry. 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 - Social history:: Patient/guardian denies using alcohol, street drugs, The patient lives with family, Smoking status: Patient denies any tobacco usage or history of. - Family history:: not pertinent. Screenin:03 Abuse screen: Denies threats or abuse. Nutritional screening: No deficits noted. ea Tuberculosis screening: No symptoms or risk factors identified. Fall Risk IV access (20 points). Assessment: 03:05 General: Appears uncomfortable, Behavior is restless. Pain: Complains of pain in ea epigastric area. Neuro: Level of Consciousness is awake, alert, obeys commands, Oriented to person, place, time, situation. Cardiovascular: Patient's skin is warm and dry. Respiratory: Airway is patent Respiratory effort is even, unlabored, Respiratory pattern is regular, symmetrical. Derm: Skin is dry, Skin is pale, Skin temperature is warm. 04:00 Reassessment: Patient appears in no apparent distress at this time. Patient is alert, rr5 oriented x 3, equal unlabored respirations, skin warm/dry/pink. kept for observation, medication given. Vital Signs: 02:51 BP 145 / 101; Pulse 63; Resp 24; Temp 98.4; Pulse Ox 100% on R/A; rr5 03:19 BP 129 / 83; Pulse 61; Resp 19; Pulse Ox 99% ; rr5 03:21 Weight 78.93 kg; Height 5 ft. 4 in. (162.56 cm); rr5 04:25 BP 136 / 89; Pulse 61; Resp 17; Pulse Ox 99% ; rr5 03:21 Body Mass Index 29.87 (78.93 kg, 162.56 cm) rr5 ED Course: 01:55 Patient arrived in ED. am2 02:40 Elisa Rudd, RN is Primary Nurse. ea 02:55 Triage completed. rr5 02:56 Arm band placed on Patient placed in an exam room, on a stretcher, on school bus monitor, rr5 on pulse oximetry. 03:00 Inserted saline lock: 20 gauge in right antecubital area, using aseptic technique. ea Blood collected. 03:03 Patient has correct armband on for positive identification. Placed in gown. Bed in low ea position. Call light in reach. Side rails up X2. bus driver/monitor on. Pulse ox on. NIBP on. 03:05 Judith Jauregui MD is Attending Physician. ma2 03:18 XRAY Chest (1 view) In Process Unspecified. EDMS Administered Medications: 03:40 Drug: Zofran (Ondansetron) 4 mg Route: IVP; Site: right antecubital; rr5 03:44 Drug: morphine 4 mg {Note: rass 0.} Route: IVP; Site: right antecubital; rr5 03:45 Drug: NS 0.9% 1000 ml Route: IV; Rate: 1 bolus; Site: right antecubital; rr5 03:45 Drug: Pepcid 20 mg Route: IVP; Site: right antecubital; rr5 04:06 Drug: GI Cocktail without - (Maalox Suspension 30 ml, Lidocaine Liquid 2 % 15 rr5 ml) Route: PO; Outcome: 04:46 Discharge ordered by . ma2 05:04 Patient left the ED. rr5 Signatures: Dispatcher [employer] EDMS Aracely Mcpherson Elena, RN Judith Herring ea, MD MD ma2 Roque, Raymond, RN RN rr5
--- NOTE | 2020-10-25 07:45 | RAD REPORT ---
EXAM DESCRIPTION: [place] Single View10/25/2020 3:17 am CLINICAL HISTORY: Chest pain COMPARISON: 2019 FINDINGS: Lung bases are hazy probably secondary to overlying soft tissue rather than infiltrates. The lungs appear clear of acute infiltrate. The heart is normal size IMPRESSION: No acute abnormalities displayed. If the patient's symptoms persist PA and lateral ches t series would be recommended
--- NOTE | 2020-10-25 12:40 | EKG ---
Test Date: 2020-10-25 Test Time: 02:53:56 Natural Gas Plant Technician: RR MEASUREMENT RESULTS: Intervals: Rate: 62 MA: 160 QRSD: 84 QT: 424 QTc: 430 [place]: P: 4 MA: 160 QRS: 32 T: 19 INTERPRETIVE STATEMENTS: Normal sinus rhythm Normal ECG Compared to ECG 01/05/2019 04:21:00 No significant changes Electronically Signed On 10-25-20 12:39:25 DIET ASSISTANT by Wayne Church
[2020-10-26 05:29] VITALS: O2SAT 99
[2020-10-26 05:30] VITALS: TEMP 98.4
[2020-10-26 05:32] VITALS: BP 136/89
== END 2020-10-25 05:04 | disposition home or self-care (01) ==
LOC: ER 01:51
DX: R10.10 Upper abdominal pain, unspecified (principal); F41.9 Anxiety disorder, unspecified; I48.91 Unspecified atrial fibrillation; Z91.011 Allergy to milk products; Z91.010 Allergy to peanuts; Z91.012 Allergy to eggs; Z91.013 Allergy to seafood
CPT/HCPCS: 36415; 71045; 80048; 80076; 83690; 83735; 83880; 84484; 85025; 85610; 93005; 96361; 96374; 96375; 99285; J2405; J7030

== ENCOUNTER 2025-01-12 18:37 | Emergency (ER) | payer OTHER ==
[2025-01-12] MEDS ORDERED: HYDROCODONE/APAP 5/325 MG TAB ONE (19:18)
[2025-01-12] MEDS ORDERED: DIAZEPAM 5 MG TABLET ONE (19:18)
--- NOTE | 2025-01-12 20:08 | RAD REPORT ---
EXAMINATION: XR RIGHT SHOUDLER CLINICAL INDICATION: Female, 34 years old. PAIN RIGHT TECHNIQUE: Multiple views of the right shoulder were obtained. COMPARISON: No prior exam. FINDINGS: No bone or joint abnormality detected.
--- NOTE | 2025-01-12 20:08 | RAD REPORT ---
EXAMINATION: XR RIGHT ELBOW CLINICAL INDICATION: Female, 34 years old. PAIN RIGHT TECHNIQUE: Multiple views of the right elbow were obtained. COMPARISON: No prior exam. FINDINGS: No evidence of fracture or dislocation. Normal alignment. No joint effusion. Soft tissues a re unremarkable.
--- NOTE | 2025-01-12 20:09 | RAD REPORT ---
EXAMINATION: XR LEFT ANKLE CLINICAL INDICATION: Female, 34 years old. PAIN TECHNIQUE: 3 view radiograph of the left ankle were obtained. COMPARISON: No prior exam. FINDINGS: Moderate lateral soft tissue swelling. No acute fracture or dislocation.
--- NOTE | 2025-01-12 20:54 | ER ---
Nurse's Notes [facility] Name: Campos Linares Age: 34 yrs Sex: Female : 1990 Arrival Date: 01/12/2025 Time: 18:37 Bed DX3 Private MD: Diagnosis: Sprain of ankle;Pain in right shoulder;Pain in right elbow Presentation: 01/12 19:08 Chief complaint: Patient states: turned left ankle and fell landing on right shoulder me1 with right arm back behind her. c/o pain 6/10 at rest, 10/10 with any movement or weight bearing. Coronavirus screen: At this time, the client does not indicate any symptoms associated with coronavirus-19. Ebola Screen: No symptoms or risks identified at this time. Initial Sepsis Screen: Does the patient meet any 2 criteria? HR > 90 bpm. Does the patient have a suspected source of infection? No. Patient's initial sepsis screen is negative. Risk Assessment: Do you want to hurt yourself or someone else? Patient reports no desire to harm self or others. Onset of symptoms was January 12, 2025 at 13:00. 19:08 Method Of Arrival: Wheelchair me1 19:08 Acuity: ADIEL 4 me1 Triage Assessment: 19:11 General: Appears uncomfortable, well groomed, well developed, well nourished, Behavior me1 is calm, cooperative, appropriate for age. Pain: Complains of pain in left ankle, right shoulder, right elbow. EENT: No signs and/or symptoms were reported regarding the EENT system. Neuro: Level of Consciousness is awake, alert, obeys commands, Oriented to person, place, time, situation, Appropriate for age. Cardiovascular: Patient's skin is warm and dry. Respiratory: Airway is patent Respiratory effort is even, unlabored, Respiratory pattern is regular, symmetrical. GI: No signs and/or symptoms were reported involving the gastrointestinal system. : No signs and/or symptoms were reported regarding the genitourinary system. Derm: Skin is intact, is healthy with good turgor, Skin is pink, warm \T\ dry. Musculoskeletal: Reports pain in left ankle, right shoulder, right elbow. Injury Description: turned left ankle and fell landing on right shoulder with right arm behind her. c/o pain to L ankle, R shoulder, R elbow. 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 - Infectious Disease History:: Denies. - Social history:: Smoking status: Patient denies any tobacco usage or history of. Screenin:00 [facility] ED Fall Risk Assessment (Adult) History of falling in the last 3 months, br2 including since admission Yes- single mechanical fall (1 pt) Confusion or Disorientation No (0 pts) Intoxicated or Sedated No (0 pts) Impaired Gait Yes (1 pt) Mobility Assist Device Used Yes (1 pt) Altered Elimination No (0 pt) Score/Fall Risk Level 3 or more points = High Risk Oriented to surroundings, Maintained a safe environment. Abuse screen: Denies threats or abuse. Denies injuries from another. Nutritional screening: No deficits noted. Tuberculosis screening: No symptoms or risk factors identified. Assessment: 20:00 Reassessment: Patient is alert, oriented x 3, equal unlabored respirations, skin br2 warm/dry/pink. Patient states feeling better. Patient states symptoms have improved. Vital Signs: 19:08 BP 132 / 81; Pulse 97; Resp 18; Temp 97.6; Pulse Ox 98% ; Weight 94.8 kg; Height 5 ft. me1 4 in. ; Pain 6/10; 19:08 Body Mass Index 35.87 (94.80 kg, 162.56 cm) me1 19:08 Pain Scale: Adult me1 ED Course: 18:40 Patient arrived in ED. cj3 19:11 Triage completed. me1 19:11 Arm band placed on Patient placed in waiting room. me1 19:13 Marie Lebron FNP-C is PHCP. kb 19:13 Duran Walton MD is Attending Physician. kb 19:36 Stefani Hayden RN is Primary Nurse. br2 20:00 Bed in low position. Call light in reach. Side rails up X 1. Provided Education on: br2 plan of care. 20:03 Ankle Left 3 View XRAY In Process Unspecified. EDMS 20:03 Elbow Right 3 View XRAY In Process Unspecified. EDMS 20:03 Shoulder Right (2 View) XRAY In Process Unspecified. EDMS 20:04 Crutch training done. Orthoglass splint: Posterior short lleg splint applied on left br2 leg. 21:11 Patient did not have IV access during this emergency room visit. br2 Administered Medications: 19:19 Drug: HYDROcodone-acetaminophen PO 5 mg-325 mg 1 tabs PO once Route: PO; me1 20:00 Follow up: Response: Pain is decreased br2 19:19 Drug: Diazepam PO 5 mg PO once Route: PO; me1 20:00 Follow up: Response: Pain is decreased br2 Outcome: 20:54 Discharge ordered by . kb 21:11 Discharged to home via wheelchair, with crutches, br2 21:11 Condition: stable 21:11 Discharge instructions given to patient, Instructed on discharge instructions, follow up and referral plans. Demonstrated understanding of instructions, follow-up care, Prescriptions given X 2, 21:12 Patient left the ED. br2 Signatures: Dispatcher [employer] EDMarie Vasquez, OUTSIDE MEDICAL SALES REPRESENTATIVE-C OUTSIDE MEDICAL SALES REPRESENTATIVE-Latha Kirkland RN RN me1 Stefani Hayden RN RN br2 Mikaela Elizabeth cj3 Corrections: (The following items were deleted from the chart) 19:13 19:11 PMHx: Atrial Fib; me1 me1
--- NOTE | 2025-01-12 20:54 | EDPHYS ---
Physician Documentation [facility] Name: Campos Linares Age: 34 yrs Sex: Female : 1990 Arrival Date: 01/12/2025 Time: 18:37 Bed DX3 Private MD: ED Physician Duran Walton HPI: 01/12 20:50 This 34 yrs old Female presents to ER via Wheelchair with complaints of Fall kb Injury. 20:50 Pt is a 34 year old female who presents for left ankle, right shoulder and right elbow kb pain after falling at 1300 today. States she twisted her ankle while walking and fell onto right shoulder and elbow. . 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 - Infectious Disease History:: Denies. - Social history:: Smoking status: Patient denies any tobacco usage or history of. ROS: 20:46 Constitutional: As per HPI kb Exam: 20:46 Constitutional: This is a well developed, well nourished patient who is awake, alert, kb and in no acute distress. Head/Face: Normocephalic, atraumatic. ENT: Moist Mucous membranes Cardiovascular: Regular rate Respiratory: Respirations even and unlabored. No increased work of breathing. Talking in full sentences Back: No spinal tenderness. No costovertebral tenderness. Full range of motion. Skin: Warm, dry with normal turgor. Normal color. Neuro: Awake and alert, GCS 15, oriented to person, place, time, and situation. 20:46 Musculoskeletal/extremity: Extremities: grossly normal except: noted in the anterior aspect of right shoulder and right elbow: decreased ROM, pain, tenderness, noted in the left lateral ankle: decreased ROM, pain, swelling, tenderness, ROM: limited active range of motion due to pain, Circulation is intact in all extremities. Sensation intact. Weight bearing: is unable to bear weight, Vital Signs: 19:08 BP 132 / 81; Pulse 97; Resp 18; Temp 97.6; Pulse Ox 98% ; Weight 94.8 kg; Height 5 ft. me1 4 in. ; Pain 6/10; 19:08 Body Mass Index 35.87 (94.80 kg, 162.56 cm) me1 19:08 Pain Scale: Adult me1 MDM: 19:13 Medical Screening Exam initiated kb 20:47 Data reviewed: vital signs, nurses notes. kb 20:48 Differential diagnosis: contusion, fracture, sprain, strain. Historians other than the kb Patient: Spouse/Significant Other: spouse. Counseling: I had a detailed discussion with the patient and/or guardian regarding the historical points, exam findings, and any diagnostic results supporting the discharge/admit diagnosis, radiology results, the need for outpatient follow up, a orthopedic surgeon, to return to the emergency department if symptoms worsen or persist or if there are any questions or concerns that arise at home. 01/12 19:14 Order name: Ankle Left 3 View XRAY; Complete Time: 20:11 kb 01/12 19:14 Order name: Elbow Right 3 View XRAY; Complete Time: 20:11 kb 01/12 19:14 Order name: Shoulder Right (2 View) XRAY; Complete Time: 20:11 kb 01/12 20:11 Order name: Short Leg Splint; Complete Time: 20:52 kb 01/12 20:11 Order name: Crutches; Complete Time: 20:52 kb Administered Medications: 19:19 Drug: HYDROcodone-acetaminophen PO 5 mg-325 mg 1 tabs PO once Route: PO; me1 20:00 Follow up: Response: Pain is decreased br2 19:19 Drug: Diazepam PO 5 mg PO once Route: PO; me1 20:00 Follow up: Response: Pain is decreased br2 Disposition Summary: 01/12/25 20:54 Discharge Ordered Notes: Location: Home kb Condition: Stable kb Diagnosis - Sprain of ankle kb - Pain in right shoulder kb - Pain in right elbow kb Followup: kb - With: Emergency Department - When: As needed - Reason: Worsening of condition Followup: kb - With: Private Physician - When: 2 - 3 days - Reason: Recheck today's complaints, Continuance of care, Re-evaluation by your physician Discharge Instructions: - Discharge Summary Sheet kb - Musculoskeletal Pain kb - Ankle Sprain, [id number] kb Forms: - Medication Reconciliation Form kb - Antibiotic Education kb - Prescription Opioid Use kb - Patient Portal Instructions kb - Leadership Thank You Letter kb Prescriptions: - Diclofenac Sodium 75 mg Oral tablet, delayed release (enteric coated) - take 1 tablet ORAL route 2 times per day As needed; 30 tablet; Refills: 0, kb Product Selection Permitted - orphenadrine citrate 100 mg Oral Tablet Sustained Release - take 1 tablet ORAL route 2 times per day As needed; 20 tablet; Refills: 0, kb Product Selection Permitted Signatures: Dispatcher [employer] EDMarie Vasquez, AIRCRAFT SEAT UPHOLSTERER-C AIRCRAFT SEAT UPHOLSTERER-Latha Kirkland RN RN me1 Stefani Hayden RN br2 Corrections: (The following items were deleted from the chart) 19:13 19:11 PMHx: Atrial Fib; me1 me1
[2025-01-12 22:04] VITALS: BP 132/81; TEMP 97.6; O2SAT 98
== END 2025-01-12 21:12 | disposition home or self-care (01) ==
LOC: ER 18:37
DX: S93.402A Sprain of unspecified ligament of left ankle, initial encounter (principal); M25.511 Pain in right shoulder; M25.521 Pain in right elbow; W18.30XA Fall on same level, unspecified, initial encounter
CPT/HCPCS: 99283